=== PATIENT | female | born 1975 | race Caucasian/White ===

== ENCOUNTER 2021-10-07 10:52 | Day surgery (SDC) | payer BC ==
[~2021-10-07] VITALS: Ht 172.7 cm; Wt 67.8 kg
[2021-10-07 11:18] VITALS: BP 104/68; PULSE 68; TEMP 98
[2021-10-07] MEDS ORDERED: LUNESTA3 MG PO (11:19)
[2021-10-07] MEDS ORDERED: PROTONIX 40MG T40 MG PO (11:20)
[2021-10-07] MEDS ORDERED: ZOVIRAX400 MG PO (11:20)
[2021-10-07 12:15] VITALS: BP 105/69; PULSE 76; TEMP 97.8
[2021-10-07 12:30] VITALS: BP 111/75; PULSE 68
--- NOTE | 2021-10-07 12:30 | NUR ---
1215 - PT arrived and was assisted with ambulating from cart to chair 2:1. Monitors applied and VSS. Warm blanekts applied. PT denies nausea and pain. PT oriented to room and call teran, within reach. PT provided Sprite and wheat toast per request.
--- NOTE | 2021-10-07 12:36 | NUR ---
1230 - VSS. PT denies current nausea. Denies pain. PT has finished her toast, and continues to drink. Call teran remains within reach if needed.
[2021-10-07 12:45] VITALS: BP 106/66; PULSE 63
--- NOTE | 2021-10-07 13:04 | NUR ---
1245 - VSS. IV discontinued. Catheter tip intact. Pressure bandage applied. NO redness or swelling noted. DC instructions and educational material reveiwed with the PT who verbalized understanding and signed the realted paperwork. Questions answered to PT satisfaction. PT denied needing assistance changing into personal clothes. remains present. Call teran remains within reach. 1305 - PT dismissed from endo via wheelchair to the PT entrence by Loreto [place]. PT has DC packet and personal belongings in hand, and was transferred into the care of her , who is present to drive private car.
== END 2021-10-07 13:08 | disposition home or self-care (01) ==
LOC: SDCO 10:52
DX: K44.9 Diaphragmatic hernia without obstruction or gangrene (principal); Z87.891 Personal history of nicotine dependence
CPT/HCPCS: J2704; J7120